=== PATIENT | female | born 1990 | race Caucasian/White ===

== ENCOUNTER 2018-08-08 08:31 | Emergency (ER) | payer SELFPAY ==
[2018-08-08 08:32] VITALS: BP 144/101; PULSE 108; RESP 22; TEMP 37; O2SAT 99; BMI 35.2
[2018-08-08 08:41] VITALS: BP 110/64; PULSE 74; RESP 16; O2SAT 98
--- NOTE | 2018-08-08 08:41 | US_ITS ---
STUDY: ABDOMINAL ULTRASOUND - RIGHT UPPER QUADRANT REASON FOR VISIT: Female, 27 years old. Right upper quadrant pain. TECHNIQUE: Ultrasound evaluation of the right upper quadrant was performed with real-time and static lauren-scale imaging. TECHNICAL QUALITY: Adequate. COMPARISON: None. FINDINGS: Liver: The liver measures 16.4 cm. There is normal echogenicity of the liver. The bile ducts are within normal limits. There is hepatic color flow. The direction of portal flow is hepatopetal. There is no demonstrated mass lesion. Gallbladder: Normal distended gallbladder. The gallbladder wall measures 3.0 mm. There is a positive sonographic Cotton's sign. There is no pericholecystic fluid. There are no gallstones. Common Bile Duct (C.B.D.): The common bile duct measures 4.0 mm. Pancreas: Normal size of the head, body and tail of the pancreas. There is normal echogenicity of the pancreas. There is no demonstrated pancreatic mass or cyst. Right Kidney: Normal size of the right kidney. The right kidney measures 11.9 cm x 5.1 cm x 3.4 cm. Normal renal cortex. The right cortex measures 1.3 cm. There is no demonstrated renal mass or cyst. There is no right hydronephrosis. US/Gallbladder IMPRESSION: Normal right upper quadrant ultrasound examination. Positive sonographic Cotton's sign. Electronically Signed: Denny Millard, at 10:00 EDT , Service support ,
--- NOTE | 2018-08-08 08:43 | ED.DCSUM_ITS ---
- ER Visit Summary Date of Service: 08/08/18 Chief Complaint: Abdominal pain History of Present Illness: The patient is a 27 F who has right upper quadrant abdominal pain. Started a week ago and is getting worse. It sharp and nonradiating. Food makes it worse. She has had nausea without vomiting. She s tates that her stools are now looser and customer relationship specialist color than normal. She denies any urinary symptoms. She has not had a fever. She has taken nothing for this at home. No history of abdominal surgeries in the past. She is concerned about her gallbladder. Physical Examination: Vital signs are reviewed. HEENT exam unremarkable. Heart is regular rate and rhythm without murmurs. Lungs are clear to auscultation. Abdomen soft with right upper tenderness. There is voluntary guarding with a Cotton sign. Back is nontender. Skin reveals normal color. Neurologic exam normal Test Results: Laboratory studies are normal. Urinalysis normal. Ultrasound of the right upper quadrant is normal. CT scan of the abdomen pelvis is unremarkable except for possibility of medullary sponge kidney Emergency Department Course and Treatment: Patient was given morphine and Zofran. She still had pain so she was given Toradol and this helped with her pain. I am not sure what is the cause of her pain. However, I feel she can be discharged with follow-up. I will give her a short course of [place] for pain Treatment Plan: [] Disposition: Discharge Impression: Abdominal pain This note was generated with [employer] dictation software. It may contain incorrect words, spelling, and punctuation that were not noted in review of the chart prior to signing ED Disposition - Plan for ED Patient: Referrals: Care Physician,No Primary [Primary Care Provider] -
[2018-08-08] MEDS: Morphine 4 MG/ML Syringe IV (09:10)
[2018-08-08] MEDS: Ondansetron 4 MG/2 ML Vial IV (09:11)
[2018-08-08 09:19] LABS: Absolute Lymphocyte Count 1.99 X10^3/ul (0.83-4.51); Absolute Neutrophil Count 4.1 X10^3/uL (2.0-7.7); Basophil# 0.02 X10^3/uL; Basophil% 0.3 % (0-1); Eosinophil# 0.07 X10^3/uL; Eosinophils% 1.1 % (0-5); Hematocrit 39.1 % (37-47); Hemoglobin 12.3 g/dl (12.0-15.0); Lymphocyte # 1.99 X10^3/ul (4.0); Lymphocyte % 30.4 % (19-41); Mean Corp Hgb Conc 31.5 g/gl (32-36); Mean Corpuscular Hgb 27.8 pg (27.0-32.0); Mean Corpuscular Volume 88.5 fL (81-99); Mean Platelet Vol. 10.5 fl (6.2-12.0); Monocyte# 0.37 X10^3/uL; Monocyte% 5.7 % (0-10); Neutrophil # 4.09 X10^3/uL (2.7-7.7); Neutrophil % 62.5 % (47-70); Platelet Count 345 K/mm3 (150-450); RBC Distribution Width CV 13.8 % (11.6-14.6); RBC Distribution Width SD 44.9 fl (35.1-43.9); Red Blood Count 4.42 M/mm3 (4.2-5.4); White Blood Count 6.5 K/mm3 (4.4-11.0)
[2018-08-08 09:21] LABS: POSITIVE COUNT NO; POSITIVE DIFFERENTIAL NO; POSITIVE MORPHOLOGY NO
[2018-08-08 09:33] LABS: AST(SGOT) 15 U/L (15-37); Alanine Aminotransfer ALT/SGPT 26 U/L (13-56); Albumin, Serum 3.9 g/dL (3.2-5.0); Alkaline Phosphatase 73 U/L (45-117); Anion Gap 9 (5-15); BUN 9 mg/dL (7-18); BUN/Creat Ratio 11.4 RATIO (10-20); Bilirubin, Direct 0.08 mg/dL (0.00-0.30); Calcium,Total 8.7 mg/dL (8.5-10.1); Chloride 105 mmol/L (98-107); Creatinine, Serum 0.79 mg/dL (0.55-1.02); EST Glomerular Filtration Rate 92 mL/min (>60); Est Glom Filt Rate - Afr Amer 111 mL/min (>60); Globulin 3.9 g/dL (2.2-4.2); Glucose 101 mg/dL (74-106); Lipase 90 U/L (73-393); Potassium 3.7 mmol/L (3.5-5.1); Protein, Total 7.8 g/dL (6.4-8.2); Sodium Level 141 mmol/L (136-145)
--- NOTE | 2018-08-08 10:05 | CT_ITS ---
STUDY: CT ABDOMEN AND PELVIS WITHOUT CONTRAST REASON FOR EXAM: Female, 27 years old. One-week history of right upper quadrant pain with radiation into the back. RADIATION DOSAGE (If Supplied By Facility): CTDIvol = ( 17.30 ) mGy, DLP = ( 855.93 ) mGycm TECHNIQUE: Transaxial images were obtained from the dome of the diaphragm to the symphysis pubis without oral contrast, and without intravenous contrast. Sagittal and coronal images were reconstructed. Individualized dose optimization techniques were used for this CT. COMPARISON: None. FINDINGS: The visualized lung bases are unremarkable. The visualized portions of the heart are within normal limits. Normal liver. Normal gallbladder and extrahepatic biliary system. Normal spleen. Normal pancreas. Normal bilateral adrenal glands. Normal right kidney. Normal left kidney. Mild increased density of the renal pyramids bilaterally suggestive of possible medullary sponge kidney. Normal visualized stomach. Normal small intestine. Normal colon. The appendix is visualized and appears normal. Normal abdominal aorta. Normal inferior vena cava. Normal retroperitoneum. Normal urinary bladder. Prior bilateral ESSURE devices. Normal abdominal wall. Spondylolysis of the pars interarticularis of the L5 vertebrae. CT/Abdomen/Pelvis without Cont IMPRESSION: Mild increased densities of the renal pyramids bilaterally suggestive of possible medullary sponge kidney. Electronically Signed: Denny Millard, at 11:36 EDT , Service support ,
[2018-08-08] MEDS: Ketorolac 30 MG/ML Syringe IV (11:02)
[2018-08-08 11:04] VITALS: RESP 18
[2018-08-08 11:18] LABS: Bacteria 0 SEEN /hpf (None Seen); Mucous, Urine 0 SEEN /hpf (<or=2+); Red Blood Cells-Urine 0 SEEN /hpf (0-5)
[2018-08-08 11:26] LABS: Internal QC Validated? YES +Cl - CLEAR BKGD; Pregnancy, Urine Negative Negative
[2018-08-08 11:27] LABS: Color, Urine Yellow (Yellow); Glucose, Dipstick Normal (Normal); Ketone-Dipstick Negative (Negative); Leukocyte Esterase-Dipstick Negative /ul (Negative); Nitrite-Dipstick Negative (Negative); Occult Blood-Urine Negative /ul (Negative); Protein-Dipstick Negative (Negative); Urine Bilirubin Dipstick Negative (Negative); Urine Clarity Clear (Clear); Urine Urobilinogen Normal (Normal)
[2018-08-08 11:34] LABS: Squamous Epithelial Cells - UA 0-5 SEEN /hpf (5-10); White Blood Cells 0-5 SEEN /hpf (0-5)
--- NOTE | 2018-08-08 11:45 | ED.DEP ---
ED Disposition - Plan for ED Patient: Disposition: Home or Assisted Living Instructions: ED Abdominal Pain Unkn Cause Prescriptions: Hydrocodone Bitart/Apap 5-325 [[place] 5MG-325MG] 1 tab PO Q6H PRN PRN 3 Days #10 tab PRN Reason: Pain Referrals: Care Physician,No Primary [Primary Care Provider] -
[2018-08-08 11:47] VITALS: BP 137/95; RESP 16; O2SAT 100
== END 2018-08-08 11:53 | disposition home or self-care (01) ==
PROVIDERS: Emergency Provider Emergency Medicine
DX: R10.9 Unspecified abdominal pain (principal); R10.11 Right upper quadrant pain
CPT/HCPCS: 74176; 76705; 80048; 80076; 81001; 81025; 83690; 85025; 96374; 96375; 99285; J2405

== ENCOUNTER 2018-11-23 08:46 | Emergency (ER) | payer SELFPAY ==
[2018-11-23 08:47] VITALS: BP 131/80; PULSE 104; RESP 25; TEMP 36.9; O2SAT 100; BMI 32.8
--- NOTE | 2018-11-23 09:07 | EKG12_ITS ---
Test Reason : Blood Pressure : / mmHG Vent. Rate : 080 BPM Atrial Rate : 080 BPM P-R Int : 146 ms QRS Dur : 092 ms QT Int : 362 ms P-R-T Axes : 057 079 035 degrees QTc Int : 417 ms Normal sinus rhythm Normal ECG Confirmed by SALLY TAYLOR, SANGEETA ([id number]), supervising editor trailer [employer] ([id number]) on 11/25/2018 1:44:49 PM Referred By: MATTHEW Confirmed By:SANGEETA ZAVALA MD
--- NOTE | 2018-11-23 09:08 | ED.VIS.GEN ---
History of Present Illness Chief Complaint: Abd Pain Detail of Chief Complaint: Right upper quadrant pain Informant: Patient Onset: Month(s) - Several months, worse today. Timing: Waxes and wanes Current Severity: Severe Maximum Severity: Severe Narrative: Patient is been having waxing and waning right upper quadrant pain for the past several months, worse with food. She has had CAT scans, ultrasounds, and HIDA scan which were reportedly unremarkable. Patient states that she was at work this morning when the pain got significantly worse. She had nausea and vomiting. She laid on the cold floor for a while because she felt she was going to pass out. She tried to get up to get a glass of water and passed out. Patient complains of right upper quadrant pain and nausea at this time. Past Medical History - Allergies and Home Meds Allergies/Adverse Reactions: Allergies codeine Allergy (Verified 11/23/18 08:46) Rash adhesive Adverse Reaction (Verified 11/23/18 08:46) Rash quetiapine fumarate [From Seroquel] Adverse Reaction (Verified 11/23/18 08:46) Nausea/Vom/Diarrhea tramadol HCl [From Ultram] Adverse Reaction (Verified 11/23/18 08:46) Nausea Primary Care Physician: Lynette Lemos MD [STAFF PHYSICIAN] - As soon as possible Prior records reviewed: Yes Past Medical History: - - Reviewed Surgical History: noncontributory Smoking Status: Former smoker Review of Systems General: Denies: Chills, Fever Eyes: Denies: Visual changes - left, Visual changes - right ENT: Denies: Bilateral ear pain Cardiovascular: Denies: Chest pain, Palpitations Respiratory: Denies: Dyspnea, Cough Gastrointestinal: Reports: Abdominal pain, Nausea, Vomiting Genitourinary: Denies: Dysuria, Hematuria Musculoskeletal: Denies: Myalgias, Neck pain, Back pain Skin: Denies: Rash Neurological: Reports: Headache Endocrine: Denies: Polyuria, Polydipsia Allergy: Denies: Uticaria Physical Exam Vital Signs/Narrative: Vital Signs Temp Pulse Resp BP Pulse Ox 11/23/18 08:47 98.5 F 104 H 25 H 131/80 H 100 Inital Vital Signs reviewed: Yes General: Well nourished, Well developed Head: Normocephalic ENT: Moist mucous membranes Neck: Supple Cardiovascular: Regular rate, Regular rhythm Respiratory: No distress, CTA bilaterally Abdomen: Soft, Tender - Right upper quadrant tenderness to palpation., Hypoactive bowel sounds. Negative for: Guarding, Rebound tenderness Skin: Normal color, No rash Neurological: Alert, Oriented x3 Psychological: - - Anxious Diagnostic/Tx/Re-eval Impressions Abdomen Ultrasound 11/23/18 09:32 IMPRESSION: Patient demonstrates positive sonographic Cotton's sign however, remainder of the gallbladder is within normal limits. No pericholecystic fluid. Remainder of the exam is unremarkable. Electronically Signed: Isaac GuerraDO radha at 11:58 EDT Tel , Service support , 11/23/18 09:32 US Abd [Abdomen Limited] [US] Stat Laboratory Results 11/23/18 11/23/18 11/23/18 08:55 08:55 08:55 WBC 11.3 H RBC 4.86 Hgb 13.4 Hct 41.5 MCV 85.4 MCH 27.6 MCHC 32.3 RDW Std Deviation 42.4 RDW Coeff of Usha 13.5 Plt Count 342 MPV 10.2 Immature Gran % (Auto) 0.300 Neut % (Auto) 70.2 H Lymph % (Auto) 22.3 [place] % (Auto) 6.8 Eos % (Auto) 0.1 Baso % (Auto) 0.3 Absolute Neuts (auto) 7.9 H Absolute Lymphs (auto) 2.51 Absolute Nucleated RBC 0.00 Nucleated RBC % 0 Sodium 135 L Potassium 3.0 L Chloride 106 Carbon Dioxide 20.0 L Anion Gap 9 BUN 8 Creatinine 0.95 Estim Creat Clear Calc 85.74 Est GFR (MDRD) Af Amer 90 Est GFR (MDRD) Non-Af 74 BUN/Creatinine Ratio 8.4 L Glucose 96 Calcium 9.5 Total Bilirubin 0.70 Direct Bilirubin 0.13 AST 8 L ALT 17 Alkaline Phosphatase 73 Total Protein 8.1 Albumin 4.2 Globulin 3.9 Lipase 56 L Serum , Qual NEGATIVE - Medical Decision Making Patient was medicated with morphine, Zofran, and IV fluids. I spoke with Dr. Lemos to help arrange close follow-up. She reviewed the ultrasound images herself and was concerned about a stone in the cystic duct. She asked that we obtain an MRCP. I spoke with electro mechanical solar technician who came in for the study. MRCP was read as normal. Dr. Lemos reviewed the images as well and does not see evidence of a stone. At this time patient will be given analgesics, antiemetics, and Protonix. She will follow-up with Dr. Lemos in the office. ED Disposition - Plan for ED Patient: Disposition: Home or Assisted Living Diagnosis: Right upper quadrant pain Instructions: ABDOMINAL PAIN, Unknown Cause, (Female) Prescriptions: Hydrocodone Bitart/Apap 5-325 [[place] 5MG-325MG] 1 tab PO Q6H PRN PRN 3 Days #10 tab PRN Reason: Pain Prescription Printed Pantoprazole Sodium [Protonix] 40 mg PO DAILY #30 tablet Ondansetron [Zofran Odt] 4 mg PO Q8H PRN PRN #10 tab PRN Reason: Nausea Prescription Printed Referrals: Lynette Lemos MD [STAFF PHYSICIAN] - As soon as possible
[2018-11-23 09:15] LABS: Absolute Lymphocyte Count 2.51 X10^3/uL (0.83-4.51); Absolute Neutrophil Count 7.9 X10^3/uL (2.0-7.7); Basophil# 0.03 X10^3/uL; Basophil% 0.3 % (0-1); Eosinophil# 0.01 X10^3/uL; Eosinophils% 0.1 % (0-5); Hematocrit 41.5 % (37-47); Hemoglobin 13.4 g/dL (12.0-15.0); Lymphocyte # 2.51 X10^3/ul (4.0); Lymphocyte % 22.3 % (19-41); Mean Corp Hgb Conc 32.3 g/dL (32-36); Mean Corpuscular Hgb 27.6 pg (27.0-32.0); Mean Corpuscular Volume 85.4 fL (81-99); Mean Platelet Vol. 10.2 fl (6.2-12.0); Monocyte# 0.77 X10^3/uL; Monocyte% 6.8 % (0-10); NRBC Flagged by Analyzer 0 % (0-5); Neutrophil # 7.92 X10^3/uL (2.7-7.7); Neutrophil % 70.2 % (47-70); Platelet Count 342 K/mm3 (150-450); RBC Distribution Width CV 13.5 % (11.6-14.6); RBC Distribution Width SD 42.4 fl (35.1-43.9); Red Blood Count 4.86 M/mm3 (4.2-5.4); White Blood Count 11.3 K/mm3 (4.4-11.0)
[2018-11-23] MEDS: 0.9% Normal Saline 1,000 ML 1000 ML IV (09:21)
[2018-11-23] MEDS: Ondansetron 4 MG/2 ML Vial IV ×2 (09:22→15:41)
[2018-11-23 09:23] LABS: Internal QC Validated? YES +Cl - CLEAR BKGD; Pregnancy, Serum, hCG Quali. NEGATIVE Negative
[2018-11-23] MEDS: Morphine 4 MG/ML Syringe IV ×3 (09:23→11:50)
[2018-11-23 09:28] LABS: AST(SGOT) 8 U/L (15-37); Alanine Aminotransfer ALT/SGPT 17 U/L (13-56); Albumin, Serum 4.2 g/dL (3.2-5.0); Alkaline Phosphatase 73 U/L (45-117); Anion Gap 9 (5-15); BUN 8 mg/dL (7-18); BUN/Creat Ratio 8.4 RATIO (10-20); Bilirubin, Direct 0.13 mg/dL (0.00-0.30); Calcium,Total 9.5 mg/dL (8.5-10.1); Chloride 106 mmol/L (98-107); Creatinine, Serum 0.95 mg/dL (0.55-1.02); EST Glomerular Filtration Rate 74 mL/min (>60); Est Glom Filt Rate - Afr Amer 90 mL/min (>60); Estimated Creatinine Clearance 85.74 ml/min; Globulin 3.9 g/dL (2.2-4.2); Glucose 96 mg/dL (74-106); Lipase 56 U/L (73-393); Protein, Total 8.1 g/dL (6.4-8.2); Sodium Level 135 mmol/L (136-145)
--- NOTE | 2018-11-23 09:32 | US_ITS ---
STUDY: ABDOMINAL ULTRASOUND - RIGHT UPPER QUADRANT REASON FOR VISIT: Female, 27 years old. Abdominal pain TECHNIQUE: Ultrasound evaluation of the right upper quadrant was performed with real-time and static lauren-scale imaging. TECHNICAL QUALITY: Adequate. COMPARISON: None. FINDINGS: Liver: The liver measures 15 cm. There is normal echogenicity of the liver. The bile ducts are within normal limits. There is hepatic color flow. The direction of portal flow is hepatopetal. There is no demonstrated mass lesion. Gallbladder: Normal distended gallbladder. The gallbladder wall measures 2 mm. There is a positive sonographic Cotton's sign. There is no pericholecystic fluid. There are no gallstones. Common Bile Duct (C.B.D.): The common bile duct measures 5.6 mm. Pancreas: Normal size of the head, body and tail of the pancreas. There is normal echogenicity of the pancreas. There is no demonstrated pancreatic mass or cyst. Right Kidney: Normal size of the right kidney. The right kidney measures 11.7 cm. Normal renal cortex. The right cortex measures 1.3 cm. There is no demonstrated renal mass or cyst. There is no right hydronephrosis. US/Abdomen Limited IMPRESSION: Patient demonstrates positive sonographic Cotton's sign however, remainder of the gallbladder is within normal limits. No pericholecystic fluid. Remainder of the exam is unremarkable. Electronically Signed: Isaac Golden DO at 11:58 EDT Tel , Service support ,
[2018-11-23 09:53] VITALS: BP 131/80; PULSE 89; RESP 18; O2SAT 97
[2018-11-23 12:00] VITALS: PULSE 84; RESP 15; O2SAT 98
--- NOTE | 2018-11-23 12:50 | MRI_ITS ---
STUDY: MR CHOLANGIOPANCREATOGRAPHY (MRCP) REASON FOR EXAM: Female, 27 years old. Right upper quadrant pain, follow-up TECHNIQUE: Standard MRCP technique was utilized. COMPARISON: Abdominal ultrasound earlier. CT abdomen and pelvis dated 08/08/2018 FINDINGS: Gall Bladder: Normal with no distention or demonstrated fixed intraluminal filling defect. Cystic duct: Normal with no demonstrated fixed filling defect. Intrahepatic ducts: Normal visualized intrahepatic ducts with no demonstrated fixed filling defect, dilation or stricture. Common hepatic duct: Normal with no demonstrated fixed filling defect, dilation or stricture. Common bile duct: Normal with no demonstrated fixed filling defect, dilation or stricture. Pancreatic duct: Normal with no demonstrated fixed filling defect, dilation or stricture. MRI/MRCP Abdomen without Contrast IMPRESSION: Normal MR Cholangiopancreatography (MRCP). Electronically Signed: Isaac Golden DO at 14:24 EDT Tel , Service support ,
[2018-11-23] MEDS: Acetaminophen 500 MG Tablet 1000 MG PO (13:08)
[2018-11-23] MEDS: HYDROmorphone 0.5 MG/0.5 ML SYRINGE IV ×2 (13:08→15:41)
[2018-11-23 15:10] VITALS: BP 159/79; PULSE 78; RESP 18; O2SAT 100
[2018-11-23 15:57] VITALS: BP 134/86; PULSE 87; RESP 16; O2SAT 96
--- NOTE | 2018-11-23 15:57 | ED.RN ---
REVIEWED D/C INSTRUCTIONS, FOLLOW UP CARE, PRESCRIPTIONS, AND S/S THAT WOULD WARRANT A RETURN TO THE ED WITH PT. PT VERBALIZED AN UNDERSTANDING AND DENIES FURTHER QUESTIONS FOR THIS RN. PT SKIN P/W/D, RESP EVEN AND UNLABORED, PT A&O X 3, NO DISTRESS NOTED. PT AMBULATED OUT OF THE ED, GAIT STEADY.
== END 2018-11-23 16:00 | disposition home or self-care (01) ==
PROVIDERS: Emergency Provider Emergency Medicine
DX: R10.11 Right upper quadrant pain (principal); Z87.891 Personal history of nicotine dependence
CPT/HCPCS: 74181; 76705; 80048; 80076; 83690; 84703; 85025; 93005; 96361; 96374; 96375; 96376; 99285; J7030; A4216; J2405

== ENCOUNTER 2019-01-11 16:19 | Emergency (ER) | payer SELFPAY ==
[2019-01-11 16:21] VITALS: BP 150/98; PULSE 119; RESP 20; TEMP 36.2; O2SAT 97; BMI 30.8
[2019-01-11] MEDS: Ibuprofen 600 MG Tablet PO (17:30)
[2019-01-11] MEDS: BACITRACIN 15 GM Tube 1 APPLIC TOPICAL (17:32)
[2019-01-11] MEDS: Diphth,Pertuss(Acell),Tet Vac 0.5 ML Vial IM (17:32)
[2019-01-11 17:37] VITALS: BP 145/93; PULSE 86; RESP 18; O2SAT 100
[2019-01-11] MEDS: HYDROcodone Bitartrate/Apap 5/325 Tablet PO (18:08)
--- NOTE | 2019-01-11 19:44 | ED.DCSUM_ITS ---
- ER Visit Summary Date of Service: 01/11/19 Chief Complaint: Dog bite History of Present Illness: The patient is a 28 F who presents with dog bite to her right thigh and right elbow. Patient states this occurred tonight just prior to arrival. Patient states the dog was a stray dog. Patient was unable to follow the dog or capture the dog. Patient does not know who the dog's window glass cutter off is or if the dog is immunized. Patient complains of pain in her right thigh. Patient states this is worse with sitting. Patient describes the pain as sharp, aching, and burning. Patient is unsure of her last tetanus. Patient states she had a recent cholecystectomy and the dog jumped onto her abdomen. Patient denie s any abdominal pain at the present time however. Physical Examination: Vital signs are stable. Patient is afebrile. Patient is in no acute distress. Skin is warm and dry. There is edema, ecchymosis, and a hematoma along the right thigh. There is superficial lacerations noted along the lateral aspect of the right thigh. There is no active bleeding noted. There are small abrasions on the lateral aspect of the right elbow. There is no active bleeding. There is full range of motion of the right elbow. Oral mucosa is pink and moist. Neck is supple. Trachea is midline. There is no JVD noted. Cranial nerves II through XII are intact. There are no focal motor or sensory deficits noted. Emergency Department Course and Treatment: Patient was given a tetanus booster. The wounds were cleaned. Since the dog was unable to be captured and the patient does not know the window glass cutter off of the dog or the dog's immunization status, rabies immunoglobulin was given. Rabies vaccine was also initiated. Bacitracin dressings were applied to the right thigh. Patient was given a dose of ibuprofen initially. Patient had minimal improvement with this. Patient was given a dose of [place]. Patient was also given a prescription for a short course of [place]. Patient was instructed to keep the wounds clean and dry. Patient was instructed to follow-up with her primary care physician 5 to 7 days. Patient was also instructed to return in 3, 7, and 14 days for further rabies vaccines. Patient understood and was agreeable with the plan. All questions were answered. Disposition: Discharge home Impression: Dog bite This note was generated with Kamego dictation software. It may contain incorrect words, spelling, and punctuation that were not noted in review of the chart prior to signing ED Disposition - Plan for ED Patient: Disposition: Home or Assisted Living Diagnosis: Dog bite Instructions: Dog Bite Prescriptions: Amox/Clavulanate Tablet [Augmentin Tablet] 875 mg PO Q12H #20 tab Prescription Printed Hydrocodone Bitart/Apap 5-325 [[place] 5MG-325MG] 1 tab PO Q4H PRN PRN 2 Days #10 tab PRN Reason: Pain Prescription Printed Referrals: Care Physician,No Primary [Primary Care Provider] - Additional Instructions: Follow-up here in the emergency department in 3, 7, and 14 days for the rest of your rabies vaccines.
[2019-01-11] MEDS: Rabies Vaccine,Human Diploid 2.5 UNITS Vial IM (19:53)
[2019-01-11] MEDS: Rabies Immune Globulin 150 UNITS/ML 1790 UNITS IM (20:41)
[2019-01-11 20:44] VITALS: PULSE 78
== END 2019-01-11 20:35 | disposition home or self-care (01) ==
PROVIDERS: Emergency Provider Emergency Medicine
DX: S71.151A Open bite, right thigh, initial encounter (principal); S51.051A Open bite, right elbow, initial encounter; Z23 Encounter for immunization; E66.9 Obesity, unspecified; W54.0XXA Bitten by dog, initial encounter; Y93.89 Activity, other specified; Y92.89 Other specified places as the place of occurrence of the external cause; Y99.8 Other external cause status
CPT/HCPCS: 90375; 90471; 90675; 90715; 96372; 99283

== ENCOUNTER → 2020-05-18 06:00 | Outpatient (REF) | payer MEDICAID, SELFPAY | LOC: LABSPEC 06:00 | PROVIDERS: Visit Provider Family Medicine | DX: Z03.818 Encounter for observation for suspected exposure to other biological agents ruled out (principal) | CPT/HCPCS: 87635; U0005; U0003 ==

== ENCOUNTER 2024-03-18 10:07 | Emergency (ER) | payer MEDICAID, SELFPAY ==
[2024-03-18 10:08] VITALS: BP 150/74; BP 161/99; PULSE 119; PULSE 121; RESP 18; RESP 20; TEMP 36.3; O2SAT 100; O2SAT 98; BMI 36.6
[2024-03-18] MEDS: Ketorolac 15 MG/ML Vial IV (10:33)
[2024-03-18] MEDS: Ondansetron 4 MG/2 ML Vial IV (10:33)
[2024-03-18 10:34] LABS: Mucous, Urine 0 SEEN /hpf (<or=2+); Red Blood Cells-Urine 0 SEEN /hpf (0-5); White Blood Cells 0 SEEN /hpf (0-5)
[2024-03-18] MEDS: Morphine 4 MG/ML Syringe IV ×2 (10:34→11:28)
[2024-03-18 10:35] LABS: Absolute Lymphocyte Count 2.96 X10^3/uL (0.83-4.51); Absolute Neutrophil Count 5.5 X10^3/uL (2.0-7.7); Basophil# 0.04 X10^3/uL; Basophil% 0.4 % (0-1); Eosinophil# 0.06 X10^3/uL; Eosinophils% 0.7 % (0-5); Hematocrit 37.8 % (37-47); Hemoglobin 12.1 g/dL (12.0-15.0); Lymphocyte # 2.96 X10^3/ul (0.83-4.51); Lymphocyte % 32.1 % (19-41); Mean Corpuscular Hgb 28.9 pg (27.0-32.0); Mean Corpuscular Volume 90.2 fL (81-99); Mean Platelet Vol. 10.3 fl (6.2-12.0); Monocyte# 0.63 X10^3/uL; Monocyte% 6.8 % (0-10); NRBC Flagged by Analyzer 0 % (0-5); Neutrophil # 5.49 X10^3/uL (2.7-7.7); Neutrophil % 59.6 % (47-70); Platelet Count 367 K/mm3 (150-450); RBC Distribution Width CV 13.3 % (11.6-14.6); RBC Distribution Width SD 43.7 fl (35.1-43.9); Red Blood Count 4.19 M/mm3 (4.2-5.4); White Blood Count 9.2 K/mm3 (4.4-11.0)
[2024-03-18 10:37] LABS: Color, Urine Yellow (Yellow); Glucose, Dipstick Normal (Normal); Ketone-Dipstick Negative (Negative); Leukocyte Esterase-Dipstick Negative /ul (Negative); Nitrite-Dipstick Negative (Negative); Occult Blood-Urine 25 /ul (Negative); Protein-Dipstick 30 mg/dl (Negative); Specific Gravity, Urine 1.015 (1.002-1.030); Urine Bilirubin Dipstick Negative (Negative); Urine Clarity Clear (Clear); Urine Urobilinogen Normal (Normal)
[2024-03-18 10:50] LABS: Bacteria 2+ /hpf (None Seen); Squamous Epithelial Cells - UA 0-5 SEEN /hpf (5-10)
[2024-03-18 10:51] LABS: Internal QC Validated? YES +Cl - CLEAR BKGD; Pregnancy, Urine Negative Negative
[2024-03-18 10:54] LABS: Anion Gap 7 (5-15); BUN 10 mg/dL (7-18); BUN/Creat Ratio 12.8 RATIO (10-20); Calcium,Total 9.2 mg/dL (8.5-10.1); Chloride 106 mmol/L (98-107); Creatinine, Serum 0.78 mg/dL (0.55-1.02); EST Glomerular Filtration Rate 90 mL/min (>60); Est Glom Filt Rate - Afr Amer 109 mL/min (>60); Estimated Creatinine Clearance 127.38 ml/min; Glucose 122 mg/dL (74-106); Potassium 3.7 mmol/L (3.5-5.1); Sodium Level 139 mmol/L (136-145)
[2024-03-18 11:13] VITALS: BP 140/86; PULSE 80; RESP 18; TEMP 36.6; O2SAT 98
== END 2024-03-18 13:11 | disposition home or self-care (01) ==
PROVIDERS: Emergency Provider Emergency Medicine; Visit Provider Emergency Medicine
DX: R10.9 Unspecified abdominal pain (principal); R11.0 Nausea; Z87.891 Personal history of nicotine dependence; Z87.442 Personal history of urinary calculi
CPT/HCPCS: 74176; 80048; 81001; 81025; 85025; 87086; 87088; 96374; 96375; 96376; 99283; A4216; J2405

== ENCOUNTER 2024-08-05 14:18 | Emergency (ER) | payer MEDICAID, SELFPAY ==
[2024-08-05 14:19] VITALS: BP 142/97; PULSE 99; RESP 18; TEMP 35.6; O2SAT 98; BMI 37.3
--- NOTE | 2024-08-05 14:20 | ED.VIS.LOWEX ---
HPI History of Present Illness HPI Narrative: Patient presents with a right ankle injury that occurred 3 days ago. Patient states she inverted her right ankle. Patient states her pain has been getting progressively worse. Patient admits to increased swelling. Patient mitts to some tingling over the fourth and fifth toes that began today. Patient denies any weakness. Patient states nothing makes her pain better and nothing makes it worse. Patient admits to some nausea due to the pain. Patient denies any other injuries. Chief Complaint: Lower Extremity Injury Informant: patient Occured/Mechanism Comment: Inversion injury of right ankle Onset/Context/Timing Onset: Days (3 days ago) Context: Sudden Onset Timing: Continuous Quality of Pain: Aching, Burning and Stabbing Location: Right ankle Worsened by: Nothing Relieved by: Nothing Associated Symptoms Associated Symptoms: Positive for Parasthesia; Negative for Weakness or Loss of Funtion PFSH PFS Medical History Kidney stones Allergy/AdvReac Type Severity Reaction Status Date / Time codeine Allergy Rash Verified 08/05/24 14:18 adhesive AdvReac Rash Verified 08/05/24 14:18 quetiapine fumarate (From AdvReac Nausea/Vom/ Verified 08/05/24 14:18 Seroquel) Diarrhea tramadol HCl (From Ultram) AdvReac Nausea Verified 08/05/24 14:18 Surgical History H/O toe surgery History of axillary surgery Social History Smoking Status: Former smoker ROS ROS ED Constitutional Constitutional ED: Denies chills or fever(s) Eyes Eyes: Denies blurry vision or change in vision ENT ENT ED: Denies rhinorrhea or sore throat Cardiovascular Cardiovascular: Denies chest pain or palpitations Respiratory/Chest Respiratory/Chest: Denies cough or dyspnea Gastrointestinal Gastrointestinal: Reports nausea; Denies vomiting Genitourinary Genitourinary ED: Denies dysuria or hematuria Musculoskeletal Musculoskeletal: Denies back pain or neck pain Integumentary Denies abscess or rash Neurologic Neurologic: Denies headache(s) or weakness Allergic/Immunologic Allergic/Immunologic ED: Denies mouth swelling or urticaria EXAM Physical Exam Const Vital Signs: 08/05/24 14:19 Temperature 96.1 F L Temperature Source Temporal Pulse Rate 99 Respiratory Rate 18 Blood Pressure 142/97 H Blood Pressure Mean 112 Pulse Ox 98 Oxygen Delivery Method Room Air Positive well nourished and well developed Constitutional Narrative: BMI of 37.4 General Appearance ED: well developed and NAD HEENT Reports moist mucous membranes Neck full ROM and supple Extremity Extremity Narrative: There is tenderness, edema, and ecchymosis over the lateral aspect of the right ankle. There is no bony crepitance or step-offs. There is mild tenderness over the base of the fifth metatarsal. There is no tenderness over the proximal fibula. Pedal pulses are equal bilaterally. Sensation was intact to light touch in all digits. Capillary refills less than 2 seconds in all digits. Achilles tendon is intact. Neuro oriented x3, CN's II-XII intact bilaterally, moves all extremities and no sensory deficits noted Sensorium / Orientation: alert Motor Exam: strength 5/5 throughout Psych mental status grossly normal MDM MDM MDM Narrative Medical decision making narrative: Differential diagnosis includes fracture, sprain, and contusion. X-rays of the right ankle will be obtained to assess for fracture. Radiography Diagnostic Testing: Clinical Impression(s) from Imaging Studies Ankle X-Ray 08/05/24 14:39 IMPRESSION: SOFT TISSUE SWELLING. NO FRACTURE IDENTIFIED. Reading Location: [facility] X-rays of the right ankle were obtained. There are 3 views. On my independent interpretation, there is no acute fracture or dislocation noted. There is mild soft tissue swelling. Radiologist also interpreted the x-rays and agrees. Treatment and Re-Evaluation Narrative: Patient was advised of her findings. Patient was given an Aircast. Patient was instructed to ice and elevate the right ankle. Patient was instructed to continue Tylenol and ibuprofen as needed for pain. Patient was instructed to follow-up with her primary care physician in 5 to 7 days. Patient understood and was agreeable with the plan. All questions were answered. Discharge Plan Triage Chief Complaint: Lower Extremity Injury ED Provider: Angelo Gonzales Dx/Rx/DC Orders Clinical Impression: Right ankle sprain, Body mass index (BMI) of 30.0 to 39.9 Instructions: ED Ankle Sprain (Adult) Primary Care Provider: Care Physician,No Primary Referrals: Kiana Palafox MD [Med Staff - Injection Moulding Machine Operator] - 5-7 Days Care Physician,No Primary [Primary Care Provider] - Print Language: Chilean Disposition Disposition: Home, Self Care
--- NOTE | 2024-08-05 14:39 | RAD_ITS ---
PROCEDURE: ANKLE MIN 3 VIEWS 08/05/2024 REASON FOR EXAM: 33-year-old female, injury/pain, bruising of the medial lower leg, swelling and bruising to the lateral ankle and across the metatarsals. TECHNIQUE: 3 views of the right ankle COMPARISON: None. FINDINGS: Bones: No acute osseous fracture. No aggressive osseous lesions. Joints: Normal alignment. Joint spaces preserved. No arthropathic features. No effusion. Soft tissues: Mild soft tissue swelling. Other: No radiopaque foreign body. RAD/Ankle min 3 Views IMPRESSION: SOFT TISSUE SWELLING. NO FRACTURE IDENTIFIED. Reading Location: [id number]
== END 2024-08-05 15:26 | disposition home or self-care (01) ==
PROVIDERS: Emergency Provider Emergency Medicine; Visit Provider Emergency Medicine
DX: S93.401A Sprain of unspecified ligament of right ankle, initial encounter (principal); Z87.891 Personal history of nicotine dependence; X58.XXXA Exposure to other specified factors, initial encounter
CPT/HCPCS: 73610; 99283

== ENCOUNTER 2025-02-05 06:24 | Emergency (ER) | payer MEDICAID, SELFPAY ==
[2025-02-05] VITALS (7 sets, daily range): BP systolic 121–159; BP diastolic 73–113; PULSE 74–118; RESP 14–22; TEMP 36.6–37.1; O2SAT 98–100; BMI 40.4
--- NOTE | 2025-02-05 07:02 | CT_ITS ---
PROCEDURE: ABDOMEN/PELVIS WITHOUT CONT 02/05/2025 REASON FOR EXAM: KIDNEY STONE TECHNIQUE: Procedure Code: CTABDPEL Modality: CT Procedure: ABDOMEN/PELVIS WITHOUT CONT Noncontrast technique limits evaluation of the abdominal and pelvic viscera. Coronal and Sagittal reconstruction series were provided. One or more dose reduction techniques were used (e.g., Automated exposure control, adjustment of the mA and/or kV according to patient size, use of iterative reconstruction technique). RADIATION DOSE SUMMARY: CTDlvol: 20 mGy DLP: 991 mGycm COMPARISON: March 18, 2024 FINDINGS: Lung bases: Clear Liver: Normal Gallbladder: Cholecystectomy. Mild dilation of the extrahepatic common bile duct (13 mm) is favored to be related to the reservoir effect. No filling defects seen. Spleen: Normal Pancreas: Normal Adrenals: Normal Kidneys: Normal Bladder: Normal Reproductive Organs: Uterus is anteverted. Essure type devices are in place. No adnexal mass. Tampon is in the vagina. Bowel: Scattered colonic diverticula are present. Stomach is normal. Small bowel is normal. Appendix: Normal Lymph nodes: None appear enlarged Vasculature: Normal Peritoneum / Retroperitoneum: No free air, free fluid or mass is seen. Bones: Vacuum disc phenomenon L4/5. Mild lower lumbar facet hypertrophy. CT/Abdomen/Pelvis without Cont IMPRESSION: 1. Cholecystectomy. Dilated common bile duct likely on the basis of the reser voir effect. No filling defects seen. Correlate with laboratory indices if appropriate. 2. Diverticulosis without diverticulitis. 3. No renal collecting system dilation or calculus seen. 4. Normal appendix Reading Location: [id number]
--- NOTE | 2025-02-05 07:03 | EX.ED.DYSGE1 ---
HPI History of Present Illness Chief Complaint: Flank Pain Informant: patient Narrative Narrative: Patient is a 34-year-old female with history of kidney stones and prior cholecystectomy presenting with worsening left-sided flank pain. Patient states her symptoms started yesterday at work. Worsened throughout the day and then started to radiate around to her abdomen. Has associated nausea or vomiting. Notes yesterday she had dysuria but that is since resolved. Denies any hematuria. States the pain is constant but does sometimes fluctuate in intensity. Can be better at rest and worse movements but she denies any specific movements that is her bowel movements have been normal. Has associated nausea and vomiting. Denies any fever or chills. Last took Advil and Tylenol at 4 AM. States this feels like her prior kidney stones. States that she had lithotripsy for kidney stone and remotely had a stent when she had a kidney stone and was with her daughter (13 years ago).No other complaints or concerns reported at this time. [facility] Medical History Kidney stones Home Medications ?Medication ?Instructions ?Recorded ?Last Taken ?Type hydrocodone-acetaminophen 5-325mg 1 tab PO Q8H PRN Pain 3 days #10 02/05/25 Unknown Rx 5mg-325mg TABLETS ondansetron 4 mg disintegrating 4 mg PO Q8H PRN PRN Nausea #10 tabs 02/05/25 Unknown Rx tablet Allergy/AdvReac Type Severity Reaction Status Date / Time codeine Allergy Rash Verified 02/05/25 06:27 adhesive AdvReac Rash Verified 02/05/25 06:27 quetiapine fumarate (From AdvReac Nausea/Vom/ Verified 02/05/25 06:27 Seroquel) Diarrhea tramadol HCl (From Ultram) AdvReac Nausea Verified 02/05/25 06:27 Surgical History H/O toe surgery History of axillary surgery Social History Smoking Status: Former smoker ROS ROS ED Constitutional Constitutional ED: Denies chills or fever(s) Cardiovascular Cardiovascular: Denies chest pain Respiratory/Chest Respiratory/Chest: Denies cough Gastrointestinal Gastrointestinal: Reports abdominal pain, nausea and vomiting; Denies constipation or diarrhea Genitourinary Genitourinary ED: Reports dysuria; Denies hematuria or urinary frequency Musculoskeletal Musculoskeletal: Reports back pain; Denies arthralgias or myalgias Neurologic Neurologic: Denies weakness EXAM Physical Exam Const Vital Signs: 02/05/25 06:25 02/05/25 06:26 02/05/25 07:31 Temperature 98.4 F 98.7 F 97.8 F Temperature Source Oral Oral Oral Pulse Rate 118 H 118 H 84 Respiratory Rate 22 H 22 H 16 Blood Pressure 157/111 H 157/111 H 124/85 H Blood Pressure Mean 126 126 98 Pulse Ox 98 100 100 Oxygen Delivery Method Room Air Room Air Room Air 02/05/25 07:31 02/05/25 08:16 02/05/25 09:35 Temperature 97.8 F 97.8 F 98 F Temperature Source Oral Oral Oral Pulse Rate 84 74 84 Respiratory Rate 16 16 16 Blood Pressure 124/85 H 157/82 H 159/113 H Blood Pressure Mean 98 107 128 Pulse Ox 100 100 100 Oxygen Delivery Method Room Air Room Air 02/05/25 09:36 02/05/25 10:00 02/05/25 10:00 Temperature 98.1 F 98.1 F Temperature Source Oral Pulse Rate 74 74 Respiratory Rate 14 14 Blood Pressure 159/113 H 121/73 H 121/73 H Blood Pressure Mean 128 89 89 Pulse Ox 99 99 Oxygen Delivery Method Room Air 02/05/25 10:00 Temperature Temperature Source Pulse Rate Respiratory Rate Blood Pressure 121/73 H Blood Pressure Mean 89 Pulse Ox Oxygen Delivery Method Positive well nourished and well developed Constitutional Narrative: Uncomfortable appearing General Appearance ED: well developed HEENT Reports moist mucous membranes Eyes PERRL Neck supple Chest Wall inspection of chest normal Resp normal respiratory effort and clear to auscultation bilaterally Cardio regular rate and regular rhythm GI normal to inspection, nondistended, normoactive bowel sounds and non-tender Back/Spine General Back: CVA tenderness left Extremity normal to inspection Neuro oriented x3 Sensorium / Orientation: alert Motor Exam: Negative for general weakness Psych mental status grossly normal Mood & Affect: tearful Skin no rashes or lesions noted and no wounds MDM MDM MDM Narrative Medical decision making narrative: Patient evaluated for worsening left flank pain. Differential includes muscle skeletal pain, renal colic, pyelonephritis and hydronephrosis. Patient is given IV morphine, fluids and Zofran. CBC, BMP, urinalysis and CT abdomen pelvis pending. Patient has improvement after receiving IV morphine and Zofran. Is then given Toradol around 9 AM. CBC and BMP unremarkable. Urinalysis consistent with some mild contamination but does not show any red blood cells. Question if she already passed the stone versus this is actual muscle skeletal pain. Low suspicion for pyelonephritis/infection. Patient does have continued pain and is redosed with morphine. Will be discharged home with a short course of Tomball for further pain control. Counseled on alternating ibuprofen and Tylenol as well for pain. Repeat evaluation she has negative straight leg test bilaterally. She has equal distal pulses. Is able to ambulate. Discharged home in stable condition. Lab Data Attestation: I reviewed the patient's lab results. Labs: Laboratory Results - last 24 hr 02/05/25 02/05/25 06:39 07:25 WBC 8.8 RBC 4.32 Hgb 12.5 Hct 37.6 MCV 87.0 MCH 28.9 MCHC 33.2 RDW Std Deviation 43.8 RDW Coeff of [place] 13.7 Plt Count 416 MPV 9.8 Immature Gran % (Auto) 0.300 Neut % (Auto) 63.9 Lymph % (Auto) 26.5 [place] % (Auto) 7.9 Eos % (Auto) 0.8 Baso % (Auto) 0.6 Absolute Neuts (auto) 5.6 Absolute Lymphs (auto) 2.33 Nucleated RBC % 0 Sodium 140 Potassium 3.6 Chloride 104 Carbon Dioxide 20.8 L Anion Gap 15 BUN 7 Creatinine 0.63 L Estim Creat Clear Calc 164.81 Est GFR (MDRD) Non-Af 119 BUN/Creatinine Ratio 11.1 Glucose 116 H Calcium 9.1 Urine Color Yellow Urine Clarity Clear Urine pH 6.0 Ur Specific [place] 1.025 Urine Protein 30 H Urine Glucose (UA) Normal Urine Ketones Negative Urine Occult Blood 250 H Urine Nitrite Negative Urine Bilirubin Negative Urine Urobilinogen Normal Ur Leukocyte Esterase 25 H Urine RBC 0 SEEN Urine WBC 0 SEEN Ur Squamous Epith Cells 0-5 SEEN Urine Bacteria RARE Urine Mucus 0 SEEN Urine Test Negative Radiography Diagnostic Testing: Clinical Impression(s) from Imaging Studies Abdomen/Pelvis CT 02/05/25 07:02 IMPRESSION: 1. Cholecystectomy. Dilated common bile duct likely on the basis of the reservoir effect. No filling defects seen. Correlate with laboratory indices if appropriate. 2. Diverticulosis without diverticulitis. 3. No renal collecting system dilation or calculus seen. 4. Normal appendix Reading Location: [facility] Discharge Plan Triage Chief Complaint: Flank Pain ED Provider: Madison Smalls Dx/Rx/DC Orders Clinical Impression: Acute left-sided low back pain Instructions: ED Back Pain (Acute or Chronic), ED Flank Pain with Uncertain Cause Prescriptions: New hydrocodone-acetaminophen 5-325 mg tablet 1 tab PO Q8H PRN (Reason: Pain) 3 Days Qty: 10 0RF ondansetron 4 mg tablet,disintegrating 4 mg PO Q8H PRN PRN (Reason: Nausea) Qty: 10 0RF Stand Alone Forms: ED Work / School Excuse Primary Care Provider: Care Physician,No Primary Referrals: Martine Morales MD [Med Staff - Special Procedures Nurse, Family Practice] Care Physician,No Primary [Primary Care Provider, Medical] Activity Restrictions/Additional Instructions: Your workup was negative for kidney stones. The either you passed a stone or this is muscle skeletal pain/pain from your back. Recommend follow-up with family doctor. Do not have 1 you were given referral for one today. Alternate ibuprofen for pain and you been given a prescription for Tomball for breakthrough severe pain as well as a prescription for Zofran. If you have a progression or worsening your symptoms please dont hesitate to return the emergency room. Print Language: Romansh Disposition Disposition: Home, Self Care Discharge Date/Time: 02/05/25 10:37
[2025-02-05 07:15] LABS: Hematocrit 37.6 % (37-47); Hemoglobin 12.5 g/dL (12.0-15.0); Immature Granulocytes Count 0.030 X10^3/uL (0.0-0.0); Mean Corp Hgb Conc 33.2 g/dL (32-36); Mean Corpuscular Volume 87.0 fL (81-99); Mean Platelet Vol. 9.8 fl (6.2-12.0); NRBC Flagged by Analyzer 0 % (0-5); Platelet Count 416 K/mm3 (150-450); RBC Distribution Width CV 13.7 % (11.6-14.6); RBC Distribution Width SD 43.8 fl (35.1-43.9); Red Blood Count 4.32 M/mm3 (4.2-5.4); White Blood Count 8.8 K/mm3 (4.4-11.0)
[2025-02-05] MEDS: 0.9% Normal Saline (1000mL) 1,000 ML 250 ML IV (07:18)
[2025-02-05 07:32] LABS: Mucous, Urine 0 SEEN /hpf (<or=2+); Red Blood Cells-Urine 0 SEEN /hpf (0-5)
[2025-02-05 07:42] LABS: Color, Urine Yellow (Yellow); Glucose, Dipstick Normal (Normal); Ketone-Dipstick Negative (Negative); Leukocyte Esterase-Dipstick 25 /ul (Negative); Nitrite-Dipstick Negative (Negative); Occult Blood-Urine 250 /ul (Negative); Protein-Dipstick 30 mg/dl (Negative); Specific Gravity, Urine 1.025 (1.002-1.030); Urine Bilirubin Dipstick Negative (Negative)
[2025-02-05 07:50] LABS: Anion Gap 15 (5-15); BUN 7 mg/dL (4-19); BUN/Creat Ratio 11.1 RATIO (10-20); Calcium,Total 9.1 mg/dL (7.6-11.0); Carbon Dioxide 20.8 mmol/L (21.0-32.0); Chloride 104 mmol/L (98-108); Estimated Creatinine Clearance 164.81 ml/min (50-250); Glucose 116 mg/dL (70-99); Potassium 3.6 mmol/L (3.3-5.1)
[2025-02-05 08:07] LABS: Squamous Epithelial Cells - UA 0-5 SEEN /hpf (5-10)
[2025-02-05 08:08] LABS: Internal QC Validated? YES +Cl - CLEAR BKGD; Pregnancy, Urine Negative Negative
[2025-02-05 08:09] LABS: Record Kit Lot#,Urine Preg 0000980607
== END 2025-02-05 10:37 | disposition home or self-care (01) ==
PROVIDERS: Emergency Provider Emergency Medicine; Visit Provider Emergency Medicine
DX: M54.50 Low back pain, unspecified (principal); R10.A2 Flank pain, left side; Z87.891 Personal history of nicotine dependence
CPT/HCPCS: 74176; 80048; 81001; 81025; 85025; 96361; 96374; 96375; 96376; 99282; A4216; J2405